=== PATIENT | female | born 1945 | race Caucasian/White ===

== ENCOUNTER 2016-09-07 19:25 | Observation (INO) | payer MEDICARE, OTHER ==
--- NOTE | 2016-09-07 20:14 | Emergency Department Record ---
History of Present Illness - General Chief Complaint: Shortness of breath Stated Complaint: SARAHI,LT ARM PAIN (NO CHEST PAIN) Time Seen by Provider: 09/07/16 19:59 Source: Patient Mode of Arrival: Ambulatory Limitations: No limitations - History of Present Illness Initial Comments: The patient is here due to a one day hx of L arm pain. The pain is located over the humerus between the L shoulder and elbow. She denies any trauma or injury but states the pain comes and goes. She also is having mild SARAHI for 2 days with a cough but denies any CP or any chest discomfort. She believes she is coming down with a cold. There has been no sputum with the cough and no fever. The patient does have a hx of CAD and has had 2 stents placed in 2007 and 2008. She did have pain with the stents which she is clearly not having now. Complaint: Shortness of breath Onset/Timin -: Hour(s) Radiation: Left arm Severity: Mild Severity scale (1-10): 7 Quality: Aching Consistency: Constant Improves With: Nothing Worsens With: Nothing Associated Symptoms: Cough Treatments Prior to Arrival: None - Related Data Home Oxygen Therapy: No Home Medications Medication Instructions Recorded Confirmed Last Taken Insulin Aspart [Novolog] 8 unit SQ BIDDIUR 12/26/14 09/07/16 09/06/16 Insulin Detemir [Levemir] 70 units INJ DAILY 12/26/14 09/07/16 09/06/16 Lisinopril [Zestril] 5 mg PO DAILY 12/26/14 09/07/16 09/06/16 Aspirin 81 mg PO QD tab.chew 04/11/16 09/07/16 09/06/16 Allergies Allergy/AdvReac Type Severity Reaction Status Date / Time aspirin Allergy Intermediate NAUSEA Verified 09/07/16 19:36 Sulfa (Sulfonamide Allergy Intermediate NAUSEA AND Verified 09/07/16 19:36 Antibiotics) VOMITING penicillin V Allergy Mild NAUSEA Verified 09/07/16 19:36 clindamycin AdvReac NAUSEA Verified 09/07/16 19:38 Travel Screening - Travel/Exposure Within Last 30 Days Have you traveled within the last 30 days?: No - Travel/Exposure Within Last Year Have you traveled outside the [place] in the last year?: No - Additonal Travel Details Have you been exposed to anyone with a communicable illness?: No - Travel Symptoms Symptom Screening: None Review of Systems Constitutional: Denies: Chills, Fever Eyes: Denies: Eye discharge ENT: Reports: Congestion Respiratory: Reports: Cough, Dyspnea Cardiovascular: Denies: Arrhythmia, Chest pain, Dyspnea on exertion Endocrine: Reports: Fatigue Gastrointestinal: Denies: Diarrhea, Vomiting Genitourinary: Denies: Dysuria Musculoskeletal: Denies: Back pain Skin: Denies: Bruising Past Medical History - SOCIAL HISTORY Smoking Status: Never smoker Alcohol Use: None Drug Use: None - RESPIRATORY Hx Respiratory Disorders: Yes Hx Sleep Apnea: Yes (dx) Hx of CPAP: No - CARDIOVASCULAR Hx Cardio Disorders: Yes Hx Cardiac Cath: Yes Hx Edema: Yes Hx Heart Attack: Yes (2007 -echo in 2016) Hx Hypertension: Yes ((denies HTN on meds for kidneys)) Hx Coronary Stent: Yes (-2007, 2-2008) - NEURO Hx Neuro Disorders: Yes Hx of Migraines: Yes (hx) Hx Neuropathy: Yes (right hand, left great toe) - GI Hx GI Disorders: Yes Hx Abdominal Pain: Yes (epigastric) Hx Reflux: Yes ("belching/hiccups") Hx Hiatal Hernia: Yes Hx of Polyps: Yes - Hx Genitourinary Disorders: No - ENDOCRINE Hx Endocrine Disorders: Yes - MUSCULOSKELETAL Hx Musculoskeletal Disorders: Yes Comment:: right shoulder injury - PSYCH Hx Psych Problems: No - HEMATOLOGY/ONCOLOGY Hx Hematology/Oncology Disorders: No Family Medical History Any Significant Family History?: No Hx Cancer: Father, Brother/Sister, Grandparents *Cancer Comment: colon, breast, ovarian Hx Diabetes: Brother/Sister Hx Heart Disease: Mother Physical Exam - General General Appearance: Alert, Oriented x3, Cooperative, No acute distress - Head Head exam: Atraumatic, Normocephalic, Normal inspection - Eye Eye exam: Normal appearance, PERRL - ENT Throat exam: Normal inspection. negative: Tonsillar erythema, Tonsillar exudate - Neck Neck exam: Normal inspection, Full ROM. negative: Tenderness - Respiratory Respiratory exam: Normal lung sounds bilaterally. negative: Respiratory distress - Cardiovascular Cardiovascular Exam: Regular rate, Normal rhythm, Systolic murmur (2/6 (chronic per the patient)) - GI/Abdominal GI/Abdominal exam: Soft, Normal bowel sounds. negative: Tenderness - Extremities Extremities exam: Normal inspection, Full ROM, Normal capillary refill, Tenderness (There is reproducible tenderness to the L humerus area.) - Neurological Neurological exam: Normal gait. negative: Abnormal gait Course Vital Signs 09/07/16 19:36 Temperature 99.1 F Pulse Rate 80 Respiratory 20 Rate Blood Pressure 206/68 Pulse Ox 97 - Reevaluation(s) Reevaluation #1: The patient is doing very well at this time. She denies any pain or SARAHI. We are waiting on lab results at this time. 09/07/16 21:00 Reevaluation #2: The patient is doing very well. She denies any pain or SARAHI. I did discuss the CT and lab results and the need for admission and she does agree to the plan. We will admit her to Dr. Gracia. 09/07/16 22:21 Medical Decision Making - Data Complexity MDM Data: Labs Ordered and/or Reviewed, X-Ray Ordered and/or Reviewed, EKG Ordered and/or Reviewed - Lab Data Result diagrams: 09/07/16 20:37 09/07/16 20:37 - EKG Data -: EKG Interpreted by Me EKG: No Acute Changes, Unchanged From Previous - Radiology Data Radiology results: Report reviewed (CXR: Neg. Chest CT: No PE but possible pneumonitis in the lower lobes and RML.) Disposition Disposition: Admit Clinical Impression: Acute dyspnea Disposition: Still a Patient at [facility] Decision to Admit: Admit from ER Decision to Admit Date: 09/07/16 Decision to Admit Time: 22:22 Accepting Physician: Radha Time Discussed w/Accepting Physician: 22:22 Instructions: Dyspnea (ED) Forms: Patient Portal Access Time of Disposition: 22:22
[2016-09-07 20:47] LABS: HEMATOCRIT 37.4 % (35.0-47.0); HEMOGLOBIN 12.7 gm/dl (11.6-16.0); MEAN CELL VOLUME 89.3 fl (81-97); MEAN CORPUSCULAR HEMOGLOBIN 30.3 pg (27-33); PLATELET COUNT 104 K/uL (130-400); RED BLOOD COUNT 4.19 M/uL (3.80-5.40); RED CELL DISTRIBUTION WIDTH 12.8 % (11.5-14.5); WHITE BLOOD COUNT W/O DIFF 6.3 K/uL (4.2-12.2)
[2016-09-07] MEDS ORDERED: ACETAMINOPHEN 325 MG TAB PO ONE (20:52)
[2016-09-07 20:55] LABS: ANION GAP 7.8 (7-16); BLOOD UREA NITROGEN 14 mg/dL (7-17); CARBON DIOXIDE 25.2 mmol/L (22-30); CREATINE PHOSPHOKINASE 67 U/L (30-135); CREATININE 0.6 mg/dL (0.52-1.04); EST GLOMERULAR FILTRATION RATE > 60 ml/min; GLUCOSE,RANDOM 282 mg/dL (70-110)
[2016-09-07 21:07] LABS: CKMB 1.4 ug/L (0-6)
[2016-09-07 21:31] LABS: TROPONIN I 0.043 ng/mL (0.00-0.034)
[2016-09-07] MEDS ORDERED: LEVOFLOXACIN 500MG IVPB 500 MG in DEXTROSE 1 BAG IVPB ONE (22:17)
[2016-09-07] MEDS ORDERED: ASPIRIN 81 MG CHEWABLE TABLET PO ONE (22:19)
[2016-09-07] MEDS ORDERED: ACETAMINOPHEN 500 MG TABLET PO PRN (23:44)
[2016-09-07] MEDS ORDERED: LEVOFLOXACIN 500MG IVPB 500 MG in DEXTROSE 1 BAG IVPB SCH (23:44)
[2016-09-08 04:55] LABS: CKMB 0.9 ug/L (0-6)
[2016-09-08 05:23] LABS: TROPONIN I 0.071 ng/mL (0.00-0.034)
[2016-09-08] MEDS ORDERED: LISINOPRIL 5 MG TABLET PO SCH (10:00)
[2016-09-08] MEDS ORDERED: INSULIN DETEMIR 70 UNIT INJ SCH (10:00)
[2016-09-08] MEDS ORDERED: INSULIN ASPART 8 UNIT SQ SCH (10:00)
[2016-09-08] MEDS ORDERED: LEVEMIR FLEXTOUCH 100 UNIT/ML INSULIN PEN SQ SCH (10:00)
[2016-09-08] MEDS ORDERED: NOVOLOG FLEXPEN (INSULIN ASPART) 100 UNITS/ML SQ SCH (10:00)
[2016-09-08] MEDS ORDERED: ASPIRIN 81 MG TABEC PO SCH (10:00)
[2016-09-08] MEDS ORDERED: ASPIRIN 325 MG TAB ENTERIC-COATED PO SCH (10:15)
--- NOTE | 2016-09-08 11:04 | Discharge Note ---
Discharge Note - Date Date of Discharge Note: 09/08/16 Disposition: Home, Self-Care Condition: (1) Good Instructions: Dyspnea (ED) Additional Instructions: follow up with Dr Pedraza in 3 to 8 days follow up with Dr. Dunham in 5 days for cardiac consult and possible stress test. take levaquin 500 mg once a day for pneumonia tylenol for upper back and neck pain and heat to neck and upper back three times a day Prescriptions: Levofloxacin [Levaquin Tab] 500 mg PO DAILY #7 tab Forms: Patient Portal Access
[2016-09-09] MEDS ORDERED: LEVOFLOXACIN 500MG IVPB 500 MG in DEXTROSE 1 BAG IVPB SCH ×2
--- NOTE | 2016-09-09 07:53 | RADIOLOGY REPORT ---
EXAM: CHEST, TWO VIEWS HISTORY: DIFFICULTY BREATHING. TECHNIQUE: Frontal and lateral views of the chest were performed. FINDINGS: The heart size is normal. The lung damon are clear. The osseous structures are normal. IMPRESSION: NEGATIVE CHEST EXAMINATION. JOB NUMBER: [id number] MTDD
--- NOTE | 2016-09-09 07:56 | CT ANGIOGRAM REPORT ---
EXAM: CTA OF THE CHEST WITH CONTRAST HISTORY: DIFFICULTY IN BREATHING, CHEST PAIN. TECHNIQUE: CTA of the chest was performed after intravenous administration of 80 ml of Omnipaque 350 contrast material. Sagittal and coronal MIP images were performed on an independent workstation. FINDINGS: There is no mass or filling defect to suggest pulmonary embolism. The thoracic aorta appears normal. There is coronary artery vascular calcification. There is cardiomegaly without pericardial effusion. There are bilateral lower lobe infiltrates suggestive of pneumonia. The visualized upper abdominal structures are normal. IMPRESSION: 1. NO CTA FINDINGS SUGGESTIVE OF PULMONARY EMBOLISM. 2. SUBTLE INFILTRATES IN BOTH LUNG BASES LIKELY RELATED TO PNEUMONITIS. 3. CARDIOMEGALY WITHOUT PERICARDIAL EFFUSION. JOB NUMBER: [id number] [facility]
--- NOTE | 2016-09-09 08:47 | History and Physical Report ---
DATE OF DICTATION: 09/08/2016. CHIEF COMPLAINT: Cough, congestion, and some left shoulder and arm numbness. HISTORY OF PRESENT ILLNESS: She states that she woke up yesterday morning, on the day of admission, with some tingling in the left arm. She complained of being short of breath around 10:00 in the morning. She has had a cold and believes that is why she is having some difficulty breathing. The patient denies any injuries to her arm. She is painful when palpating the upper thoracic back area by the neck. The pain goes down into her arm when doing that. She was seen in the emergency department by Dr. Lewis who worked her up for cardiac disease. The troponin I was in the indeterminate range. She also has an elevated D-dimer, and so a CT angiogram was done. This was negative for a pulmonary embolus but showed early pneumonia. She was put in the hospital for intravenous Levaquin, serial cardiac enzymes, and further evaluation. She is not shortness of breath at this time at my examination. She has no no chest pain and no arm pain. She does have pain in the neck and upper thoracic area on the left side when I palpate that area. She states that the cough has been going on for ten days, but she just thought it was a cold which was not getting better. She states that her throat is a little dry. PAST MEDICAL HISTORY: Diabetes mellitus, coronary artery disease. She had stents placed in 2007 when she had a myocardial infarction. She sees Dr. Dunham. She also has gastroesophageal reflux disease. Her diabetes mellitus has been going on for 20 years. She is on both Lantus and NovoLog. She has degenerative joint disease in her back. She has had a right shoulder injury. PAST SURGICAL HISTORY: Cholecystectomy, exploratory tubal, appendectomy, bilateral trigger fingers, colonoscopy, and EGD. MEDICATIONS ON ADMISSION: Lisinopril 5.0 mg q. daily, Levemir 70 units q. daily , NovoLog 8.0 units b.i.d. before meals, aspirin 81 mg q. daily. ALLERGIES: Sulfa, penicillin, and clindamycin. FAMILY/PSYCHOSOCIAL HISTORY: Cancer in the father, brother, sister, and grandparents; colon, breast, and ovarian. There is diabetes in her brothers and sisters. Her mother has heart disease. She has never smoked cigarettes. No alcohol or drug use. REVIEW OF SYSTEMS: HEENT: She has had a cough, congestion, and cold for the last ten days. It has been progressively getting worse. When she woke up yesterday, on the day of admission, she had numbness in the left shoulder. She was concerned about that and came in. Mostly, she told the nurse she was short of breath, and she thought it was from her cold. She wanted that evaluated. Cardiovascular: No chest pain or palpitations. No arrhythmias. She is being followed by Dr. Dunham. She had an echocardiogram in May of 2016 at [facility] which was normal, according to the patient. Respiratory: See Chief Complaint. She has been short of breath. She has been coughing over the last ten days. She was diagnosed in the emergency department with pneumonia. Gastrointestinal: No nausea, vomiting, diarrhea, black stools, or bloody stools. Genitourinary: No dysuria, hematuria, frequency, or burning on urination. Musculoskeletal: She has pain in her back and has also had problems with her right shoulder. The left shoulder and upper back are giving her troubles now. Neurologic: No cerebrovascular accident, paralysis, or paraesthesias. Endocrine: She has had diabetes for 20 years. Integument: No rash, ulcers, changing moles, or yellow skin. PHYSICAL EXAMINATION: General: Height is 5 feet, 3 inches. Weight is 192 pounds. Vital Signs: Temperature is 99.7, pulse is 79, blood pressure is 150/65, respiratory rate is 18, pulse oximetry is 97% on room air. HEENT: Pupils are equal, round, and reactive to light and accommodation. Extraocular muscles are intact. The throat is clear. The nose is clear. The tympanic membranes are galindo. Neck: The neck is supple. No jugular venous distension. No hepatojugular reflex. No carotid bruit. The thyroid is smooth. Cardiovascular: Regular rate and rhythm without murmurs, clicks, rubs, or gallops. Respiratory: Clear to auscultation and percussion. There might be some bilateral lower base rales which are very faint. This seemed to clear when she coughed. Abdomen: Soft and nontender. No hepatosplenomegaly. No masses. No tenderness. Bowel sounds are active. No bruit. Extremities: No pitting edema. No cyanosis. No clubbing. Full range of motion. Peripheral pulses are good. Breasts, Gynecological, and Rectal Examinations: Deferred. Neurological Examination: Cranial nerves II through XII are intact. No gross defect. Sensation is normal. Strength is normal. Deep tendon reflexes are equal bilaterally. Babinski is negative. Mental Status: Alert and oriented times three. IMPRESSIONS: 1. Pneumonia bilaterally as seen by CT scan. Troponin I is in the indeterminate range. However, she has no acute changes on the EKG, and she is having no chest pain with walking around the room. 2. Diabetes mellitus, insulin dependent. PLAN: She is looking very good at this point. She is not requiring oxygen. She is eating, drinking, and walking around the room without difficulty. She is on Levaquin. We will send her home with Levaquin 500 mg q. daily for seven days. Follow up with Dr. Pedraza in three to eight days. Follow up with Dr. Dunham this coming week for for evaluation of her indeterminate troponin I. Tang Garcia D.O. Date Time JOB NUMBER: [id number] MTDD
--- NOTE | 2016-09-11 16:12 | Discharge Summary ---
DISCHARGE DIAGNOSES: 1. Bilateral pneumonia. Seen by CTA scan. 2. Troponin I is indeterminate. 3. Diabetes mellitus insulin dependent. 4. Coronary artery disease by history. Cardiac stents 2007. 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 5. Upper thoracic muscular strain with radiculopathy and to the left arm. ATTENDING PHYSICIAN: Tang Garcia DO HISTORY OF PRESENT ILLNESS: This is a 71-year-old female who came in because of shortness of breath, dyspnea and a cough. She also complained of some numbness in her left shoulder and arm. She had some neck and thoracic back pain. She was worked up in the Emergency Department by Dr. Lewis with a cardiac workup. Her D-dimer was elevated. A CTA was done which showed no PEs but did show bilateral pneumonia, ground glass appearance of the CAT scan, and her EKG showing no acute changes. Troponin I was at the indeterminate range. It went up slightly with the second troponin I. The CK-MB's went down. EKG: The second EKG was the same as the first EKG, showing no acute changes and normal sinus rhythm. She is having no chest pain and her breathing is much better today, and the numbness in the arm is gone. She does have some pain in the neck and upper thoracic area when I palpated that area on examination. THERAPY PROVIDED: The patient was put on the monitor, started on Levaquin 500 mg IV. At my examination, she was asymptomatic, she was not having any problems breathing, she was walking around the room, she ate breakfast nicely. She had some pain on palpation of the neck and upper thoracic area that did not sound cardiac in origin at all. At this point I felt it safe to discharge her home and to finish the workup as an outpatient. HOSPITAL COURSE: The patient is improved. CONDITION AT DISCHARGE: Improved. DISPOSITION: She is admitted as an observation patient. DISCHARGE INSTRUCTIONS: Follow up with Dr. Pedraza in 3-8 days. Follow up with Dr. Dunham in the next week and within 5 days for a cardiac evaluation and a possible stress test. Use Tylenol for the pain in her back and neck area. Heat to the upper back and neck area 3 times a day. DISCHARGE MEDICATIONS: 1. Levaquin 500 mg daily for 7 days. Her home medications: 2. Lisinopril 5 mg daily. 3. Levemir 70 units daily. 4. NovoLog 8 units b.i.d. p.r.n. depending on what her sugars are before meals. 5. Aspirin 81 mg daily. ACTIVITY: Just walking until she is evaluated by Dr. Dunham for more strenuous activity. CC: Dr. Charla ARRIETA
== END 2016-09-08 13:10 | disposition home or self-care (01) ==
LOC: ER 19:25 → MEDSURG 23:23
PROVIDERS: ADMIT Emergency Medicine; ATTEND Emergency Medicine
DX: J18.9 Pneumonia, unspecified organism (principal); E11.9 Type 2 diabetes mellitus without complications; Z79.4 Long term (current) use of insulin; I25.10 Atherosclerotic heart disease of native coronary artery without angina pectoris; R79.89 Other specified abnormal findings of blood chemistry
CPT/HCPCS: 71020; 71275; 80048; 82550; 82553; 84484; 85027; 85379; 93005; 93010; 93041; 94760; 96365; 99217; 99220; 99285; J1956

== ENCOUNTER 2016-12-21 08:00 | Emergency (ER) | payer MEDICARE, OTHER ==
[2016-12-21 08:27] LABS: URINE BILIRUBIN NEGATIVE (NEGATIVE); URINE BLOOD SMALL (NEGATIVE); URINE COLOR YELLOW; URINE KETONE NEGATIVE (NEGATIVE); URINE LEUKOCYTE ESTERASE SMALL (NEGATIVE); URINE NITRITE NEGATIVE (NEGATIVE)
--- NOTE | 2016-12-21 08:28 | Emergency Department Record ---
History of Present Illness - General Chief complaint: Female Urogenital Problem Stated complaint: hip pain/ yeast infection Time Seen by Provider: 12/21/16 08:13 Source: Patient Mode of Arrival: Ambulatory Limitations: No limitations - History of Present Illness Initial comments: 71 yo female presents to ED with a CC of urinary discomfort and left sided back pain symptoms. Patient reports that her back pain symptoms occur intermittently for several years with activity, reports taking Tylenol last night which improved her symptoms. Patient reports dysuria symptoms that began this morning, reports symptoms may be related to infection vs. yeast. Patient denies vaginal discharge , fevers, chills, or recent illness symptoms. MD Complaint: Dysuria Onset/Timin -: Month(s) Quality: Aching Consistency: Constant Worsens with: Movement Associated Symptoms: Denies other symptoms - Related Data Home Medications Medication Instructions Recorded Confirmed Last Taken Insulin Aspart [Novolog] 8 unit SQ BIDDIUR 12/26/14 12/21/16 12/20/16 Insulin Detemir [Levemir] 70 units INJ DAILY 12/26/14 12/21/16 12/21/16 Lisinopril [Zestril] 5 mg PO DAILY 12/26/14 12/21/16 12/21/16 Aspirin 81 mg PO QD tab.chew 04/11/16 12/21/16 12/21/16 Previous Rx's Medication Instructions Recorded Fluconazole [Diflucan] 150 mg PO ONCE #1 tab 12/21/16 Nitrofurantoin Carson [Macrobid] 100 mg PO BID #14 capsule 12/21/16 Allergies Allergy/AdvReac Type Severity Reaction Status Date / Time aspirin Allergy Intermediate NAUSEA Unverified 10/15/16 08:10 Sulfa (Sulfonamide Allergy Intermediate NAUSEA AND Unverified 10/15/16 08:10 Antibiotics) VOMITING penicillin V Allergy Mild NAUSEA Unverified 10/15/16 08:10 clindamycin AdvReac NAUSEA Unverified 10/15/16 08:10 Travel Screening - Travel/Exposure Within Last 30 Days Have you traveled within the last 30 days?: No - Travel/Exposure Within Last Year Have you traveled outside the [place] in the last year?: No - Additonal Travel Details Have you been exposed to anyone with a communicable illness?: No - Travel Symptoms Symptom Screening: None Review of Systems Constitutional: Denies: Chills, Fever, Malaise, Night sweats Eyes: Denies: Eye discharge, Eye pain ENT: Denies: Congestion, Ear pain, Epistaxis Respiratory: Denies: Cough, Dyspnea Cardiovascular: Denies: Chest pain, Dyspnea on exertion Endocrine: Denies: Fatigue Gastrointestinal: Denies: Abdominal pain, Nausea, Vomiting Genitourinary: Denies: Incontinence, Retention Musculoskeletal: Reports: Back pain. Denies: Arthralgia, Gout, Joint swelling Skin: Denies: Bruising, Change in color Neurological: Denies: Abnormal gait, Confusion, Headache, Seizure Psychiatric: Denies: Anxiety Hematological/Lymphatic: Denies: Anemia, Blood Clots Past Medical History - SOCIAL HISTORY Smoking Status: Never smoker Alcohol Use: None Drug Use: None - RESPIRATORY Hx Respiratory Disorders: Yes Hx Sleep Apnea: Yes (dx) Hx of CPAP: No - CARDIOVASCULAR Hx Cardio Disorders: Yes Hx Cardiac Cath: Yes Hx Edema: Yes Hx Heart Attack: Yes (2007 -echo in 2016) Hx Hypertension: Yes ((denies HTN on meds for kidneys)) Hx Coronary Stent: Yes (-2007, 2-2008) - NEURO Hx Neuro Disorders: Yes Hx of Migraines: Yes (hx) Hx Neuropathy: Yes (right hand, left great toe) - GI Hx GI Disorders: Yes Hx Abdominal Pain: Yes (epigastric) Hx Reflux: Yes ("belching/hiccups") Hx Hiatal Hernia: Yes Hx of Polyps: Yes - Hx Genitourinary Disorders: No - ENDOCRINE Hx Endocrine Disorders: Yes - MUSCULOSKELETAL Hx Musculoskeletal Disorders: Yes Comment:: right shoulder injury - PSYCH Hx Psych Problems: No - HEMATOLOGY/ONCOLOGY Hx Hematology/Oncology Disorders: No Family Medical History Any Significant Family History?: No Hx Cancer: Father, Brother/Sister, Grandparents *Cancer Comment: colon, breast, ovarian Hx Diabetes: Brother/Sister Hx Heart Disease: Mother Physical Exam - General General Appearance: Alert, Oriented x3, Cooperative, Mild distress Limitations: No limitations - Head Head exam: Atraumatic, Normocephalic, Normal inspection Head exam detail: negative: Abrasion, Contusion, Ly's sign, General tenderness, Hematoma, Laceration - Eye Eye exam: Normal appearance. negative: Conjunctival injection, Periorbital swelling, Periorbital tenderness, Scleral icterus - ENT Ear exam: negative: Auricular hematoma, Auricular trauma Nasal Exam: negative: Active bleeding, Discharge, Dried blood Mouth exam: negative: Drooling, Laceration, Muffled voice, Tongue elevation - Neck Neck exam: Normal inspection. negative: Meningismus, Tenderness - Respiratory Respiratory exam: Normal lung sounds bilaterally. negative: Rales, Respiratory distress, Rhonchi, Stridor - Cardiovascular Cardiovascular Exam: Regular rate, Normal rhythm, Normal heart sounds - GI/Abdominal GI/Abdominal exam: Soft. negative: Rebound, Rigid, Tenderness - Rectal Rectal exam: Deferred - exam: Deferred - Extremities Extremities exam: Normal inspection. negative: Pedal edema, Tenderness - Back Back exam: Reports: Paraspinal tenderness (left lumbar paravertebral tenderness) . Denies: CVA tenderness (R), CVA tenderness (L) - Neurological Neurological exam: Alert, Normal gait, Oriented X3 - Psychiatric Psychiatric exam: Normal affect, Normal mood - Skin Skin exam: Normal color. negative: Abrasion Type of lesion: negative: abrasion Course Vital Signs 12/21/16 08:02 Temperature 97.5 F L Pulse Rate 73 Respiratory 16 Rate Blood Pressure 143/61 Pulse Ox 98 - Reevaluation(s) Reevaluation #1: 12/21/16 08:43 UA reviewed, 3-6 RBCs does not seem compatible with ureteral calculi, therfore CT imaging for stones does not appear indicated at this time. Patient's clinical appearance is not c/w kidney infection/calculus either. Will treat for both possible UTI and yeast with instructions to return for any worsening of her symptoms. Patient agrees with the plan of care as discussed, and appears stable for discharge at this time. Disposition Disposition: Discharge Clinical Impression: Yeast cystitis UTI (urinary tract infection) Qualifiers: Urinary tract infection type: acute cystitis Hematuria presence: with hematuria Qualified Code(s): N30.01 - Acute cystitis with hematuria Disposition: Home, Self-Care Condition: (2) Stable Instructions: Urinary Tract Infection in Women (ED) Additional Instructions: Return to ED if your symptoms worsen or if you have any concerns. Macrobid and Diflucan as directed. Follow-up with your family doctor in 3-5 days as directed. Prescriptions: Fluconazole [Diflucan] 150 mg PO ONCE #1 tab Nitrofurantoin Carson [Macrobid] 100 mg PO BID #14 capsule Forms: Patient Portal Access Time of Disposition: 08:47
[2016-12-21 08:32] LABS: URINE APPEARANCE SL CLOUDY
[2016-12-21 08:41] LABS: URINE BACTERIA 1+; URINE WBC 16 - 20 (0-2/hpf); URINE YEAST FEW
== END 2016-12-21 09:01 | disposition home or self-care (01) ==
LOC: ER 08:00
DX: N30.01 Acute cystitis with hematuria (principal)
CPT/HCPCS: 81001; 99282

== ENCOUNTER 2017-05-30 19:49 | Emergency (ER) | payer MEDICARE, OTHER ==
[2017-05-30] MEDS ORDERED: ASPIRIN 81 MG CHEWABLE TABLET PO ONE (19:51)
--- NOTE | 2017-05-30 20:08 | Emergency Department Record ---
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 Patient reports taking Nitro SL prior to arrival which improved her symptoms, however her symptoms returned prompting presentation to the ED. Patient reports previous "stent in side of a stent" several years ago, reports that she has not undergone stress testing in several years (sees Dr. Dunham). Patient denies fevers, chills, or recent illness other than a recent ear infection. MD Complaint: Chest pain Onset/Timin -: Hour(s) Pain Location: Substernal Pain Radiation: RUE, LUE Severity: Moderate Quality: Aching Consistency: Intermittent Improves With: Nitroglycerin Worsens With: Nothing Context: New medications (prednisone) Treatments Prior to Arrival: Nitroglycerin - Related Data On Oral Contraceptives: No Home Medications Medication Instructions Recorded Confirmed Last Taken Levofloxacin [Levaquin Tab] 500 mg PO DAILY 05/30/17 05/30/17 Unknown Prednisone 5 mg PO BID 05/30/17 05/30/17 Unknown Allergies Allergy/AdvReac Type Severity Reaction Status Date / Time aspirin Allergy Intermediate NAUSEA Verified 05/30/17 20:08 Sulfa (Sulfonamide Allergy Intermediate NAUSEA AND Verified 05/30/17 20:08 Antibiotics) VOMITING penicillin V Allergy Mild NAUSEA Verified 05/30/17 20:08 clindamycin AdvReac NAUSEA Verified 05/30/17 20:08 Review of Systems Constitutional: Denies: Chills, Fever, Malaise, Night sweats Eyes: Denies: Eye discharge, Eye pain ENT: Denies: Congestion, Ear pain, Epistaxis Respiratory: Denies: Cough, Dyspnea Cardiovascular: Reports: Chest pain. Denies: Dyspnea on exertion Endocrine: Denies: Fatigue, Heat or cold intolerance Gastrointestinal: Denies: Abdominal pain, Nausea, Vomiting Genitourinary: Denies: Incontinence, Retention Musculoskeletal: Denies: Arthralgia, Back pain Skin: Denies: Bruising, Change in color Neurological: Denies: Abnormal gait, Confusion, Headache, Seizure Psychiatric: Denies: Anxiety Hematological/Lymphatic: Denies: Anemia, Blood Clots Past Medical History - SOCIAL HISTORY Smoking Status: Never smoker Drug Use: None - RESPIRATORY Hx Respiratory Disorders: Yes Hx Sleep Apnea: Yes (dx) Hx of CPAP: No - CARDIOVASCULAR Hx Cardio Disorders: Yes Hx Cardiac Cath: Yes Hx Edema: Yes Hx Heart Attack: Yes (2008 -echo in 2016) Hx Hypertension: Yes ((denies HTN on meds for kidneys)) Hx Coronary Stent: Yes (1-2007, 2-2008) - NEURO Hx Neuro Disorders: Yes Hx of Migraines: Yes (hx) Hx Neuropathy: Yes (right hand, left great toe) - GI Hx GI Disorders: Yes Hx Abdominal Pain: Yes (epigastric) Hx Reflux: Yes ("belching/hiccups") Hx Hiatal Hernia: Yes Hx of Polyps: Yes - Hx Genitourinary Disorders: No - ENDOCRINE Hx Endocrine Disorders: Yes - MUSCULOSKELETAL Hx Musculoskeletal Disorders: Yes Comment:: right shoulder injury - PSYCH Hx Psych Problems: No - HEMATOLOGY/ONCOLOGY Hx Hematology/Oncology Disorders: No Family Medical History Hx Cancer: Father, Brother/Sister, Grandparents *Cancer Comment: colon, breast, ovarian Hx Diabetes: Brother/Sister Hx Heart Disease: Mother Physical Exam - General General Appearance: Alert, Oriented x3, Cooperative, Mild distress (patient is pain-free currently) Limitations: No limitations - Head Head exam: Atraumatic, Normocephalic, Normal inspection Head exam detail: negative: Abrasion, Contusion, Ly's sign, General tenderness, Hematoma, Laceration - Eye Eye exam: Normal appearance. negative: Conjunctival injection, Periorbital swelling, Periorbital tenderness, Scleral icterus - ENT Ear exam: negative: Auricular hematoma, Auricular trauma Nasal Exam: negative: Active bleeding, Discharge, Dried blood, Foreign body Mouth exam: negative: Drooling, Laceration, Muffled voice, Tongue elevation - Neck Neck exam: Normal inspection. negative: Meningismus, Tenderness - Respiratory Respiratory exam: Normal lung sounds bilaterally. negative: Rales, Respiratory distress, Rhonchi, Stridor - Cardiovascular Cardiovascular Exam: Regular rate, Normal rhythm, Normal heart sounds - GI/Abdominal GI/Abdominal exam: Soft. negative: Rebound, Rigid, Tenderness - Rectal Rectal exam: Deferred - exam: Deferred - Extremities Extremities exam: Normal inspection. negative: Calf tenderness, Pedal edema, Tenderness - Back Back exam: Denies: CVA tenderness (R), CVA tenderness (L) - Neurological Neurological exam: Alert, Normal gait, Oriented X3 - Psychiatric Psychiatric exam: Normal affect, Normal mood - Skin Skin exam: Normal color. negative: Abrasion Type of lesion: negative: abrasion Course - Reevaluation(s) Reevaluation #1: 05/30/17 20:06 EKG: NSR 83 LAD, short CT Q waves V1-V5, No acute ST-T wave changes c/w 09/08/16 Reevaluation #2: 05/30/17 20:52 Labs reviewed, Glucose 421, Troponin 0.023. Labs are otherwise grossly unremarkable for an acute process. CXR: No acute process. Reevaluation #3: 05/30/17 21:02 Case was discussed with Dr. Mckenzie, will accept transfer for further cardiology evaluation. Reevaluation #4: 05/30/17 21:47 Bed assignment has been received, awaiting EMS for transfer. Patient was reassessed, continues to deny any chest pain symptoms. Will continue to monitor pending transfer. Medical Decision Making - Lab Data Result diagrams: 05/30/17 20:10 05/30/17 20:10 Disposition Disposition: Transfer Clinical Impression: Elevated troponin Chest pain Qualifiers: Chest pain type: unspecified Qualified Code(s): R07.9 - Chest pain, unspecified CAD (coronary artery disease) Qualifiers: Coronary Disease-Associated Artery/Lesion type: unspecified vessel or lesion type [place] vs. transplanted heart: [place] heart Associated angina: with unstable angina Qualified Code(s): I25.110 - Atherosclerotic heart disease of [place] coronary artery with unstable angina pectoris Disposition: Acute Care Hospital Transfer Transfer To: [facility] Reason For Transfer: Cardiology consultation Accepting Physician: Magaly Time Discussed w/Accepting Physician: 20:55 Forms: Patient Portal Access Time of Disposition: 20:55 Quality - Quality Measures Quality Measures: N/A - Blood Pressure Screening Does Patient Have Any of the Following: Active Dx of HTN Blood Pressure Classification: Hypertensive Reading Systolic Measurement: 192 Diastolic Measurement: 73 Screening for High Blood Pressure: Patient Exclusion, Hx of HTN [G9744]
[2017-05-30 20:18] LABS: BASO % 0.3 % (0-6); EOS % 0.9 % (0-6); GRAN % 80.5 % (47-80); HEMATOCRIT 35.3 % (35.0-47.0); HEMOGLOBIN 11.9 gm/dl (11.6-16.0); LYMPH % 12.8 % (16-45); MEAN CELL VOLUME 91.2 fl (81-97); MEAN CORPUSCULAR HEMOGLOBIN 30.7 pg (27-33); MEAN CORPUSCULAR HGB CONC 33.7 g/dl (32-36); MEAN PLATELET VOLUME 10.9 fl (7.4-10.4); MONO % 5.5 % (0-9); PLATELET COUNT 190 K/uL (130-400); RED BLOOD COUNT 3.87 M/uL (3.80-5.40); RED CELL DISTRIBUTION WIDTH 13.2 % (11.5-14.5); WHITE BLOOD COUNT W/O DIFF 7.4 K/uL (4.2-12.2)
[2017-05-30 20:40] LABS: BLOOD UREA NITROGEN 26 mg/dL (8-23)
[2017-05-30 20:41] LABS: CREATININE 0.9 mg/dL (0.5-0.9); EST GLOMERULAR FILTRATION RATE > 60 mL/min; TOTAL PROTEIN 7.1 g/dL (6.6-8.7)
[2017-05-30 20:43] LABS: GLUCOSE,RANDOM 421 mg/dL (74-109)
[2017-05-30 20:46] LABS: ALB/GLOB RATIO 0.7 (1.1-1.8); ALKALINE PHOSPHATASE 76 U/L (35-104); ALT/SGPT 16 U/L (<33); AST/SGOT 37 U/L (10.0-35.0)
--- NOTE | 2017-05-31 21:23 | RADIOLOGY REPORT ---
EXAM: CHEST 2 VIEWS HISTORY: ACUTE NONPRODUCTIVE COUGH. COMPARISON: Chest x-ray 09/07/16. TECHNIQUE: Two-view chest. FINDINGS: The lungs are clear. Cardiac silhouette, diaphragm, and osseous structures are unremarkable for age. IMPRESSION: NEGATIVE CHEST. JOB NUMBER: [id number] MTDD
== END 2017-05-30 22:15 | disposition short-term general hospital (02) ==
LOC: ER 19:49
DX: R07.2 Precordial pain (principal); R79.89 Other specified abnormal findings of blood chemistry; R05 Cough; I10 Essential (primary) hypertension; I25.2 Old myocardial infarction
CPT/HCPCS: 71020; 80053; 84484; 85025; 93005; 93010; 99285

== ENCOUNTER 2018-01-31 20:28 | Emergency (ER) | payer MEDICARE, OTHER ==
--- NOTE | 2018-01-31 20:39 | Emergency Department Record ---
History of Present Illness - General Chief complaint: Female Urogenital Problem Stated complaint: UTI Time Seen by Provider: 01/31/18 20:29 Source: Patient, Old records reviewed Limitations: No limitations - History of Present Illness Initial comments: 72 yo female presents with right sided flank pain and back pain that started earlier this evening. No fall or injury. The pain seems to come and go in waves. No fevers. She has had nausea. She has had her gall bladder removed in the past. No diarrhea. No rash. She has had similar symptoms with UTI in the past. She has had renal stones in the past as well. She has not vomited. No blood in the stools. Complaint: Dysuria -: Hour(s) Radiation: R flank Quality: Aching Consistency: Intermittent Improves with: None Worsens with: None Associated Symptoms: Loss of appetite, Nausea/vomiting - Related Data Home Medications Medication Instructions Recorded Confirmed Last Taken Triseba 30 units SC DAILY 01/31/18 Unknown Previous Rx's Medication Instructions Recorded Ciprofloxacin HCl [Cipro] 500 mg PO Q12HR #14 tablet 01/31/18 Allergies Allergy/AdvReac Type Severity Reaction Status Date / Time aspirin Allergy Intermediate NAUSEA Unverified 11/10/17 11:09 Sulfa (Sulfonamide Allergy Intermediate NAUSEA AND Unverified 11/10/17 11:09 Antibiotics) VOMITING penicillin V Allergy Mild NAUSEA Unverified 11/10/17 11:09 clindamycin AdvReac NAUSEA Unverified 11/10/17 11:09 Review of Systems Constitutional: Denies: Chills, Fever, Malaise, Weakness Eyes: Denies: Eye discharge, Eye pain ENT: Denies: Congestion, Throat pain Respiratory: Denies: Cough, Dyspnea Cardiovascular: Denies: Chest pain, Palpitations, Syncope Endocrine: Denies: Fatigue Gastrointestinal: Reports: As per HPI, Abdominal pain, Nausea. Denies: Constipation, Diarrhea, Hematemesis, Hematochezia, Melena, Vomiting Genitourinary: Reports: As per HPI. Denies: Dysuria, Retention, Urgency Musculoskeletal: Reports: Back pain. Denies: Arthralgia, Myalgia Skin: Denies: Bruising, Change in color, Rash Neurological: Denies: Headache, Weakness Psychiatric: Denies: Anxiety Hematological/Lymphatic: Denies: Blood Clots, Easy bleeding, Easy bruising, Swollen glands Past Medical History - SOCIAL HISTORY Smoking Status: Never smoker Drug Use: None - RESPIRATORY Hx Respiratory Disorders: Yes Hx Sleep Apnea: Yes (dx) Hx of CPAP: No - CARDIOVASCULAR Hx Cardio Disorders: Yes Hx Cardiac Cath: Yes Hx Edema: Yes Hx Heart Attack: Yes (2008 -echo in 2016) Hx Hypertension: Yes ((denies HTN on meds for kidneys)) Hx Coronary Stent: Yes (1-2007, 2-2008) - NEURO Hx Neuro Disorders: Yes Hx of Migraines: Yes (hx) Hx Neuropathy: Yes (right hand, left great toe) - GI Hx GI Disorders: Yes Hx Abdominal Pain: Yes (epigastric) Hx Reflux: Yes ("belching/hiccups") Hx Hiatal Hernia: Yes Hx of Polyps: Yes - Hx Genitourinary Disorders: No - ENDOCRINE Hx Endocrine Disorders: Yes - MUSCULOSKELETAL Hx Musculoskeletal Disorders: Yes Comment:: right shoulder injury - PSYCH Hx Psych Problems: No - HEMATOLOGY/ONCOLOGY Hx Hematology/Oncology Disorders: No Family Medical History Hx Cancer: Father, Brother/Sister, Grandparents *Cancer Comment: colon, breast, ovarian Hx Diabetes: Brother/Sister Hx Heart Disease: Mother Physical Exam - General General Appearance: Alert, Oriented x3, Cooperative, No acute distress Limitations: No limitations - Head Head exam: Atraumatic, Normocephalic, Normal inspection - Eye Eye exam: Normal appearance. negative: Conjunctival injection, Scleral icterus - ENT ENT exam: Normal exam Ear exam: Normal external inspection Nasal Exam: Normal inspection Mouth exam: Normal external inspection Teeth exam: Normal inspection - Neck Neck exam: Normal inspection - Respiratory Respiratory exam: Normal lung sounds bilaterally. negative: Respiratory distress - Cardiovascular Cardiovascular Exam: Regular rate, Normal rhythm, Normal heart sounds - GI/Abdominal GI/Abdominal exam: Soft. negative: Distended, Guarding, Rebound, Rigid, Tenderness - Rectal Rectal exam: Deferred - exam: Deferred - Extremities Extremities exam: Normal inspection - Back Back exam: Reports: CVA tenderness (R), Paraspinal tenderness, Tenderness. Denies: CVA tenderness (L), Muscle spasm - Neurological Neurological exam: Alert, Oriented X3 - Psychiatric Psychiatric exam: Normal affect, Normal mood. negative: Agitated, Anxious - Skin Skin exam: Dry, Intact, Normal color, Warm Course - Reevaluation(s) Reevaluation #1: 01/31/18 21:06 The CBC was reviewed Chronic anemia UA with a small amount of blood. 01/31/18 21:35 The CMP was reviewed. Glucose is 240 otherwise no acute significant changes. 01/31/18 21:[address] results 01/31/18 21:40 01/31/18 21:49 The pain and nausea are improving. She states she is comfortable. Waiting for the radiology report. 01/31/18 21:51 BP on recheck is much improved. 01/31/18 22:[address] scan was reviewed. Post OP Alycia and Appy. Calcified granuloma RML, degenerative spine changes, questionable inflammation of the panniculus - clnical correlation requested. She now states over several weeks she occasional gets a fleeting sharp chest pain. Last seconds. Non exertion related. Not sustained EKG ordered EKG #1 Rate 75 Rhythm Sinus Ryan Left Intervals Normal ST segments Poor R wave, non specific changes Prior 05/30/18 NO changes on today's compared to prior. 01/31/18 22:18 01/31/18 22:28 The abdomen was examined. No signs of cellulitis in the area the CT noted We discussed the CT does not demonstrate obvious cause for her right side pain The urine will be cultured with the few bacteria and blood I explained this may not be the cause of her pain The patient was given instructions to call her PCP this week and we discussed reasons to return to the ED Medical Decision Making - Lab Data Result diagrams: 01/31/18 20:50 01/31/18 20:50 Disposition Disposition: Discharge Clinical Impression: Right flank pain Disposition: Home, Self-Care Condition: (1) Good Instructions: Abdominal Pain (ED) Additional Instructions: Return to the ED if you have persistent abdominal pain, any vomiting or fever Return or see your heart doctor if any chest pain occurs with activity, walking or last more than a few seconds Watch your skin for rash where your right side pain is located A culture was sent of your urine that can be checked with your doctor in 3 days. Prescriptions: Ciprofloxacin HCl [Cipro] 500 mg PO Q12HR #14 tablet Forms: Patient Portal Access Time of Disposition: 22:28 Quality - Quality Measures Quality Measures: N/A - Blood Pressure Screening Does Patient Have Any of the Following: Active Dx of HTN Blood Pressure Classification: Hypertensive Reading Systolic Measurement: 147 Diastolic Measurement: 56 Screening for High Blood Pressure: Patient Exclusion, Hx of HTN [T1106]
[2018-01-31] MEDS ORDERED: SODIUM CHLORIDE 0.9% 500 ML IV ONE (20:46)
[2018-01-31] MEDS ORDERED: ACETAMINOPHEN 1,000 MG/100 ML BTL IVPB ONE (20:46)
[2018-01-31] MEDS ORDERED: ONDANSETRON HCL IV 4 MG/2 ML VIAL IVP ONE (20:46)
[2018-01-31 20:58] LABS: URINE APPEARANCE SL CLOUDY; URINE BILIRUBIN NEGATIVE (NEGATIVE); URINE BLOOD SMALL (NEGATIVE); URINE COLOR YELLOW; URINE KETONE NEGATIVE (NEGATIVE); URINE LEUKOCYTE ESTERASE NEGATIVE (NEGATIVE); URINE NITRITE NEGATIVE (NEGATIVE); URINE UROBILINOGEN 0.2 E.U./dL (0.20 - 1.00)
[2018-01-31 20:59] LABS: URINE GLUCOSE (UA) >=1000 mg/dL (NEGATIVE)
[2018-01-31 21:00] LABS: BASO % 0.3 % (0-6); EOS % 2.3 % (0-6); GRAN % 65.3 % (47-80); HEMATOCRIT 33.7 % (35.0-47.0); LYMPH % 22.8 % (16-45); MEAN CELL VOLUME 92.8 fl (81-97); MEAN CORPUSCULAR HEMOGLOBIN 30.3 pg (27-33); MEAN CORPUSCULAR HGB CONC 32.6 g/dl (32-36); MEAN PLATELET VOLUME 11.1 fl (7.4-10.4); MONO % 9.3 % (0-9); PLATELET COUNT 109 K/uL (130-400); RED BLOOD COUNT 3.63 M/uL (3.80-5.40); RED CELL DISTRIBUTION WIDTH 13.5 % (11.5-14.5); WHITE BLOOD COUNT W/O DIFF 6.1 K/uL (4.2-12.2)
[2018-01-31 21:09] LABS: BLOOD UREA NITROGEN 19 mg/dL (8-23); CREATININE 0.7 mg/dL (0.5-0.9); EST GLOMERULAR FILTRATION RATE > 60 mL/min
[2018-01-31 21:10] LABS: URINE BACTERIA FEW; URINE RBC 0 - 2 (NONE SEEN); URINE WBC NONE SEEN (0-2/hpf)
[2018-01-31 21:12] LABS: GLUCOSE,RANDOM 244 mg/dL (74-109)
[2018-01-31 21:14] LABS: ALT/SGPT 22 U/L (<33)
[2018-01-31 21:15] LABS: ALB/GLOB RATIO 0.9 (1.1-1.8); ALBUMIN 3.3 g/dL (4.0-5.0); ALKALINE PHOSPHATASE 72 U/L (35-104); AST/SGOT 47 U/L (10.0-35.0); LIPASE 30 U/L (13-60)
[2018-01-31] MEDS ORDERED: CIPROFLOXACIN HCL 500 MG TABLET PO ONE (22:30)
--- NOTE | 2018-02-02 11:03 | CT SCAN REPORT ---
EXAM: EMERGENCY CT SCAN OF THE ABDOMEN AND PELVIS HISTORY: RIGHT FLANK PAIN FOR THREE DAYS. APPENDECTOMY, CHOLECYSTECTOMY. TECHNIQUE: Axial CT scan of the abdomen and pelvis was performed without oral or IV contrast. Comparison: No prior CT abdomen or pelvis with which to compare. Encounter: Not applicable. FINDINGS: Small calcified granuloma right middle lobe. Cardiomegaly. Surgical clips gallbladder fossa consistent with cholecystectomy. The appendix is not identified consistent with the surgical history as well. Small periumbilical anterior abdominal wall hernia containing adipose tissue, but no bowel. No intrarenal calculi identified on either side. Small central renal calculus on the right is probably a renal arterial calcification. There is no hydronephrosis or hydroureter on either side. No ureteral calculus seen on either side and no bladder calculus evident. Evaluation of the bowel and viscera is extremely limited without oral or IV contrast. Given this limitation, no definite hepatic, splenic, adrenal, pancreatic, or renal mass identified. No free intraperitoneal air or free intraperitoneal fluid evident. Multilevel degenerative disk disease in the lumbar spine and some facet joint arthropathy in the lumbar spine as well. Quite prominent spurring in the visualized lower thoracic spine. There is a relatively large panniculus extending down below the pelvis. Suggestion of some mild edema or cellulitis bilaterally in the anterior abdominal wall of this panniculus just below the level of the umbilicus. Correlation with physical examination is suggested. IMPRESSION: 1. POSTOP CHOLECYSTECTOMY AND APPENDECTOMY. 2. NO DEFINITE URINARY TRACT CALCULI OR HYDRONEPHROSIS EVIDENT. 3. MULTILEVEL DEGENERATIVE CHANGE IN THE SPINE. 4. SMALL PERIUMBILICAL ANTERIOR ABDOMINAL WALL HERNIA CONTAINING ADIPOSE TISSUE , BUT NO BOWEL. 5. CALCIFIED GRANULOMA RIGHT MIDDLE LOBE. 6. CARDIOMEGALY. JOB NUMBER: [id number] and [id number] [facility]
== END 2018-01-31 22:47 | disposition home or self-care (01) ==
LOC: ER 20:28
DX: R10.31 Right lower quadrant pain (principal); R30.0 Dysuria; R11.2 Nausea with vomiting, unspecified; I10 Essential (primary) hypertension; I25.2 Old myocardial infarction; Z79.4 Long term (current) use of insulin; Z87.442 Personal history of urinary calculi
CPT/HCPCS: 99284 ×2; 96374; 96375; 83690; 85025; 80053; 81001; 74176; 93005; 93010; J2405